=== PATIENT | male | born 2000 | race Hispanic/Latino ===

== ENCOUNTER 2024-09-24 11:46 | Emergency (ER) | payer SELFPAY ==
[2024-09-24 12:05] VITALS: BP 156/95
--- NOTE | 2024-09-24 13:26 | ED.MUSCINJ ---
HPI-Injury
General
Chief Complaint: Musculo-Skeletal Complaint
Source: patient
Exam Limitations: none
Time Seen by Provider: 09/24/24 13:22
History of Present Illness-Injury
Initial Injury comments:
24-year-old male presents with left hand pain and swelling starting today. He cut his hand pinched between a piece of log and the log splitter. It was not the wedge part of the splinter it was the frame. He notes swelling and discomfort. No
other complaints.
Phy Exam
Physical Exam
Physical Exam:
General: Well-appearing male no acute respiratory distress
HEENT: Normocephalic atraumatic musculoskeletal exam: Left hand swollen and tender over the dorsal aspect of the hand mainly over the index and middle finger metacarpals. No deformities. Able to make a full fist. Range of motion of the wrist is
intact
Skin has an abrasion over the dorsum of the left hand no current bleeding
Injury Course
Orders/Labs/Results
Orders:
Orders
09/24/24 11:47
Hand, Left 3 View [CR Hand - Left Min 3 Views] Urgent
Comment:
Reason For Exam: pain, swelling
*Critical Care Note
Total Time (30-74mins, 75-104mins- exclusive of procedures): Not Applicable
Update Note
Update Note:
Left hand pain after crushing type injury. X-rays reviewed and are negative for fracture or dislocation. Suspect contusion. Stable for discharge
ED Attending Note
-
Portions of this chart may have been created with voice recognition software.� Occasional wrong word or��sound alike� substitutions may have occurred due to the inherent limitations of voice recognition software.
Discharge Plan
Departure
Patient Disposition: Home (Routine Discharge)
Date of Disposition: 09/24/24
Time of Disposition: 13:27
Patient with high blood pressure during this ER visit?: No
Discharge Problem:
Contusion
Instructions: Contusion (DC)
Activity Restrictions/Additional Instructions:
Use ice or Tylenol or ibuprofen for pain. Return if needed otherwise follow-up with your doctor
Interventions
Interventions:
*Risk Screen - Suicide Last Done: 09/24/24 12:05
*General Assessment Last Done: 09/24/24 12:05
*Neglect/Abuse Screening Last Done: 09/24/24 12:05
Discharge Date and Time
Print Language: GREENLANDIC
== END 2024-09-24 13:36 | disposition home or self-care (01) ==
LOC: EMR 11:46
PROVIDERS: EMERGENCY PHYSICIAN Emergency Medicine
DX: S60.222A Contusion of left hand, initial encounter (principal); X58.XXXA Exposure to other specified factors, initial encounter
CPT/HCPCS: 99283; 73130